=== PATIENT | female | born 1975 | race Caucasian/White ===

== ENCOUNTER 2016-11-29 04:05 | Emergency (ER) | payer BC ==
[~2016-11-29] VITALS: Ht 167.6 cm; Wt 59.0 kg
[2016-11-29] MEDS ORDERED: MAG HYDROX/AL HYDROX/SIMETH 30 ML UDC ONE (04:16)
[2016-11-29] MEDS ORDERED: SIMETHICONE 80 MG TAB.CHEW ONE (04:16)
[2016-11-29] MEDS ORDERED: LIDOCAINE VISCOUS 2% UD 15 ML UDC ONE (04:16)
[2016-11-29] MEDS ORDERED: SIMETHICONE 80 MG TAB.CHEW PO ONE (04:30)
[2016-11-29] MEDS ORDERED: MAG HYDROX/AL HYDROX/SIMETH 30 ML UDC PO ONE (04:30)
[2016-11-29] MEDS ORDERED: LIDOCAINE VISCOUS 2% UD 15 ML UDC MM ONE (04:30)
[2016-11-29 04:56] VITALS: BP 112/64
[2016-11-29] MEDS ORDERED: IBUPROFEN 400 MG TABLET PO ONE (05:00)
== END 2016-11-29 04:57 | disposition home or self-care (01) ==
LOC: ER 04:08
DX: F41.9 Anxiety disorder, unspecified (principal); M50.222 Other cervical disc displacement at C5-C6 level; M50.223 Other cervical disc displacement at C6-C7 level
CPT/HCPCS: 99284; A4606; Z7610

== ENCOUNTER 2016-12-18 20:53 | Emergency (ER) | payer BC ==
[~2016-12-18] VITALS: Ht 167.6 cm; Wt 59.0 kg
[2016-12-18 21:05] VITALS: BP 143/73
--- NOTE | 2016-12-18 21:10 | NUR ---
To bed 4 a 41 yo female bibself with c/o tingling and burning in her chest back arms neck ears and pt states has sore throat intermittent for 2 weeks, reported to have botox injection for TMJ. Patient is aaox4, ambulatory. No s/s of acute distress noted. Awaiting ER MD wilkerson.
--- NOTE | 2016-12-18 21:11 | NUR ---
NOEMI Bob at bedside.
--- NOTE | 2016-12-18 21:45 | NUR ---
Patient discharged to home in stable condition. Written and verbal after care instructions given. Patient verbalizes understanding of instruction. Patient is ambulatory with a steady gait.
== END 2016-12-18 21:47 | disposition home or self-care (01) ==
LOC: ER 20:58
DX: F45.9 Somatoform disorder, unspecified (principal); F10.20 Alcohol dependence, uncomplicated; Z88.8 Allergy status to other drugs, medicaments and biological substances
CPT/HCPCS: 99281; A4606; Z7610; Z7502

== ENCOUNTER 2017-01-22 | Emergency (ER) | payer BC ==
[~2017-01-22] VITALS: Ht 167.6 cm; Wt 59.0 kg
--- NOTE | 2017-01-22 01:15 | NUR ---
PT A/OX4 BREATHING EFFORTLESSLY ON ROOM AIR, PT STATES SHE HAS BEEN HAVING BULGING VEINS IN HER ARMS OFF AND ON X 3 DAYS AND WHEN THEY BULDGE THEY HURT, MADE AWARE PT ON THE MONITOR, WILL CONTINUE TO MONITOR.
--- NOTE | 2017-01-22 01:50 | NUR ---
DRUG CLERK CALLED
[2017-01-22 02:04] LABS: BASOPHILS % (AUTO) 0.6 % (0.0-2.0); EOSINOPHILS # (AUTO) 0.1 /CMM (0.0-0.7); EOSINOPHILS % (AUTO) 1.9 % (0.0-6.0); HEMATOCRIT 42 % (33-45); HEMOGLOBIN 13.9 g/dL (11.5-14.8); LYMPHOCYTES # (AUTO) 2.8 /CMM (0.8-4.8); LYMPHOCYTES % (AUTO) 35.9 % (20.0-44.0); MEAN CORPUSCULAR HEMOGLOBIN 29 PG (26.0-33.0); MEAN CORPUSCULAR HGB CONC 33 g/dl (31.0-36.0); MEAN CORPUSCULAR VOLUME 89 fL (82-100); MONOCYTES # (AUTO) 0.8 /CMM (0.1-1.30); MONOCYTES % (AUTO) 9.5 % (2.0-12.0); NEUTROPHILS # (AUTO) 4.1 /CMM (1.8-8.9); NEUTROPHILS % (AUTO) 52.1 % (43.0-81.0); PLATELET COUNT (AUTO) 239 /CMM (150-450); RDW COEFFICIENT OF VARIATION 13.3 (11.5-15.0); RED BLOOD CELL COUNT(AUTO) 4.77 MIL/uL (4.0-5.2); WHITE BLOOD COUNT (AUTO) 7.9 K/uL (4.3-11.0)
[2017-01-22 02:23] LABS: INR 0.96 (0.87-1.13); PROTHROMBIN TIME 10.3 SECS (9.5-12.7)
[2017-01-22 02:26] LABS: ALBUMIN 4.3 g/dL (3.4-5.0); BILIRUBIN,TOTAL 1.5 mg/dL (0.2-1.0); CALCIUM, SERUM 9.1 mg/dL (8.5-10.1); CREATININE 0.7 mg/dL (0.6-1.3); POTASSIUM 3.7 mmol/L (3.5-5.1); TOTAL PROTEIN, SERUM 7.9 g/dL (6.4-8.2)
[2017-01-22 03:02] LABS: D-DIMER 0.19 mg/L(FEU (0.17-0.50)
[2017-01-22 03:27] VITALS: BP 124/81
== END 2017-01-22 03:28 | disposition home or self-care (01) ==
LOC: ER 00:03
DX: F41.9 Anxiety disorder, unspecified (principal)
CPT/HCPCS: 36415; 80053-TC; 84703-TC; 85025-TC; 85378-TC; 85610-TC; A4606; Z7610

== ENCOUNTER 2017-11-05 13:44 | Emergency (ER) | payer SELFPAY ==
[~2017-11-05] VITALS: Ht 167.6 cm; Wt 59.0 kg
[2017-11-05 13:44] VITALS: BP 120/68
== END 2017-11-05 14:20 | disposition home or self-care (01) ==
LOC: ER 13:46
DX: F41.9 Anxiety disorder, unspecified (principal); M50.222 Other cervical disc displacement at C5-C6 level
CPT/HCPCS: 99284; A4606; Z7610

== ENCOUNTER 2018-10-31 11:44 | Emergency (ER) | payer BC ==
[~2018-10-31] VITALS: Ht 160 cm; Wt 59.0 kg
[2018-10-31 11:44] VITALS: BP 123/71
[2018-10-31] MEDS ORDERED: KETOROLAC TROMETHAMINE INJ 30 MG/ML VIAL ONE (12:25)
[2018-10-31] MEDS ORDERED: KETOROLAC TROMETHAMINE INJ 60 MG/2 ML VIAL IM ONE (12:30)
== END 2018-10-31 13:19 | disposition home or self-care (01) ==
LOC: ER 11:46
DX: M54.2 Cervicalgia (principal); F41.9 Anxiety disorder, unspecified
CPT/HCPCS: 96372; 99283; A4606; J1885; Z7610